=== PATIENT | female | born 2000 | race African-American/Black ===

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

== ENCOUNTER 2018-02-26 11:44 | Emergency (ER) | payer MEDICAID ==
[2018-02-26] MEDS ORDERED: ACETAMINOPHEN 325 MG TABLET PO ONE (12:16)
--- NOTE | 2018-02-26 12:26 | ER Document Report ---
HPI - HPI Patient complains to provider of: sore throat Pain Level: 5 Context: Patient is an 16-year-old female presenting to the emergency department complaining of sore throat for the last 2 days. Patient's denying fever, cough , congestion, nausea, vomiting, dysuria, abdominal pain, vaginal discharge. Patient does not have a primary care provider nor does she have insurance. She is requesting STI testing in the emergency room. Past medical history: None Medications: None Allergies: None - REPRODUCTIVE Reproductive: DENIES: : Past Medical History - General Information source: Patient - Social History Smoking Status: Never Smoker Lives with: Family Family History: Reviewed & Not Pertinent - Past Medical History Cardiac Medical History: Denies: Hx Heart Attack, Hx Hypertension Pulmonary Medical History: Denies: Hx Asthma Neurological Medical History: Denies: Hx Cerebrovascular Accident, Hx Seizures Renal/ Medical History: Denies: Hx Peritoneal Dialysis GI Medical History: Denies: Hx Hepatitis, Hx Hiatal Hernia, Hx Ulcer Psychiatric Medical History: Reports: Hx Depression Infectious Medical History: Denies: Hx Hepatitis Past Surgical History: Reports: Hx Myringotomy. Denies: Hx Hysterectomy, Hx Mastectomy, Hx Open Heart Surgery, Hx Pacemaker - Immunizations Immunizations up to date: Yes Vertical Provider Document - CONSTITUTIONAL Agree With Documented VS: Yes Notes: GENERAL: Alert, interacts well. No acute distress. HEAD: Normocephalic, atraumatic. EYES: Pupils equal, round, and reactive to light. Extraocular movements intact. ENT: Oral mucosa moist, tongue midline. Nares patent, TM's intact nonerythematous nonbulging. Pharynx erythematous with palatal petechiae and exudate noted bilateral tonsils +2 symmetrical. No trismus NECK: Full range of motion. Supple. Trachea midline. LUNGS: Clear to auscultation bilaterally, no wheezes, rales, or rhonchi. No respiratory distress. No lymphadenopathy appreciated HEART: Tachycardic rate and rhythm. No murmur ABDOMEN: Soft, non-tender. Non-distended. Bowel sounds present in all 4 quadrants. EXTREMITIES: Moves all 4 extremities spontaneously. No edema, normal radial and dorsalis pedis pulses bilaterally. No cyanosis. BACK: no cervical, thoracic, lumbar midline tenderness. No saddle anesthesia, normal distal neurovascular exam. NEUROLOGICAL: Alert and oriented x3. Normal speech. cranial nerves II through XII grossly intact PSYCH: Normal affect, normal mood. SKIN: Warm, dry, normal turgor. No rashes or lesions noted. - INFECTION CONTROL TRAVEL OUTSIDE OF THE [place] IN LAST 30 DAYS: No Course - Re-evaluation Re-evalutation: 02/26/18 12:27 Patient is currently denying dysuria or vaginal discharge. Patient does state she wishes to be tested and treated for sexually transmitted diseases. Discussed urine test for gonorrhea and chlamydia. Then discussed pelvic exam to rule out trichomonas, bacterial vaginosis, yeast and pelvic inflammatory disease. Patient is currently refusing a pelvic exam. We will treat for gonorrhea and chlamydia in the emergency room. Treatments will also cover pharyngeal infections. 02/26/18 14:06 Patient states she is unable to take p.o. azithromycin at this time due to sore throat. Will prescribe for home use. - Vital Signs Vital signs: Temp Pulse Resp BP Pulse Ox 98.9 F 103 H 22 115/62 98 02/26/18 11:57 02/26/18 11:57 02/26/18 11:57 02/26/18 11:57 02/26/18 11:57 Discharge - Discharge Clinical Impression: Strep pharyngitis, Sexually transmitted disease exposure Condition: Stable Disposition: HOME, SELF-CARE Instructions: Strep Throat ([facility]) Additional Instructions: As we discussed you have been seen and treated in the emergency department for strep throat. You have also been prophylactically treated for gonorrhea and chlamydia. Because we did not do a pelvic exam today some sexually transmitted diseases were not able to be tested for. You should follow-up with the health district or your primary care provider. Please return to the emergency room for any other concerning symptoms. Prescriptions: Amoxicillin Trihydrate [Amoxil 500 mg Capsule] 500 mg PO BID 10 Days capsule Azithromycin 500 mg PO ONCE PRN #2 tablet PRN Reason:
[2018-02-26] MEDS ORDERED: AMOXICILLIN TRIHYDRATE 500 MG CAPSULE PO ONE (12:35)
[2018-02-26] MEDS ORDERED: CEFTRIAXONE INJ 250 MG VIAL IM ONE (13:30)
[2018-02-26] MEDS ORDERED: LIDOCAINE 1% INJ-PF (10 MG/ML) 30 ML SDV INJ ONE (13:30)
[2018-02-26] MEDS ORDERED: AZITHROMYCIN 1 GM SUSP PACKET PO ONE (13:31)
[2018-02-26 13:51] VITALS: BP 116/68
[2018-02-26 14:58] LABS: CHLAM PCR NOT DETECTED (NOT DETECT); GON PCR NOT DETECTED (NOT DETECT)
== END 2018-02-26 14:15 | disposition home or self-care (01) ==
LOC: ER 11:44
DX: Z20.2 Contact with and (suspected) exposure to infections with a predominantly sexual mode of transmission (principal); J02.0 Streptococcal pharyngitis
CPT/HCPCS: 99283; 96372; 87880; 81025; 87491; 87591; J3490 ×2; Q0144; J0696

== ENCOUNTER 2018-05-07 12:44 | Emergency (ER) | payer MEDICAID ==
--- NOTE | 2018-05-07 13:30 | ER Document Report ---
ED Medical Screen (RME) - General Chief Complaint: Anxiety Stated Complaint: PSYCH ISSUES Time Seen by Provider: 05/07/18 13:25 Mode of Arrival: Ambulatory Information source: Patient Notes: Patient is a 17-year-old female with past medical history of anxiety and depression who presents with increased symptoms of anxiety. She reports that she has been off of her medications for approximately 1 month. She states she used to take Celexa and BuSpar. She reports that her anxiety symptoms have increased and she is having a hard time focusing. Patient is calm and pleasant. Patient denies any suicidal or homicidal thoughts. I have greeted and performed a rapid initial assessment of this patient. A comprehensive ED assessment and evaluation of the patient, analysis of test results and completion of the medical decision making process will be conducted by additional ED providers. Dictation of this chart was performed using voice recognition software; therefore, there may be some unintended grammatical errors. TRAVEL OUTSIDE OF THE [place] IN LAST 30 DAYS: No - Related Data Allergies/Adverse Reactions: Sulfa (Sulfonamide Antibiotics) Allergy (Verified 05/07/18 12:49) Pruritis Past Medical History - Past Medical History Cardiac Medical History: Denies: Hx Heart Attack, Hx Hypertension Pulmonary Medical History: Denies: Hx Asthma Neurological Medical History: Denies: Hx Cerebrovascular Accident, Hx Seizures Renal/ Medical History: Denies: Hx Peritoneal Dialysis GI Medical History: Denies: Hx Hepatitis, Hx Hiatal Hernia, Hx Ulcer Psychiatric Medical History: Reports: Hx Depression Infectious Medical History: Denies: Hx Hepatitis Past Surgical History: Reports: Hx Myringotomy. Denies: Hx Hysterectomy, Hx Mastectomy, Hx Open Heart Surgery, Hx Pacemaker - Immunizations Immunizations up to date: Yes Physical Exam - Vital signs Vitals: Temp Pulse Resp BP Pulse Ox 98.8 F 73 18 117/58 L 100 05/07/18 12:57 05/07/18 12:57 05/07/18 12:57 05/07/18 12:57 05/07/18 12:57 Course - Vital Signs Vital signs: Temp Pulse Resp BP Pulse Ox 98.8 F 73 18 117/58 L 100 05/07/18 12:57 05/07/18 12:57 05/07/18 12:57 05/07/18 12:57 05/07/18 12:57 Doctor's Discharge - Discharge Instructions: Anxiety ([facility])
--- NOTE | 2018-05-07 18:59 | ER Document Report ---
ED Psych Disorder / Suicide - General Mode of Arrival: Ambulatory TRAVEL OUTSIDE OF THE [place] IN LAST 30 DAYS: No - General Chief Complaint: Anxiety Stated Complaint: PSYCH ISSUES Time Seen by Provider: 05/07/18 13:25 Notes: Patient is a 17-year-old female with past medical history of anxiety and depression who presents with increased symptoms of anxiety. She reports that she has been off of her medications for approximately 1 month. She states she used to take Celexa and BuSpar. She reports that her anxiety symptoms have increased and she is having a hard time focusing. Patient is calm and pleasant. Patient denies any suicidal or homicidal thoughts. ([facility]) - Related Data Allergies/Adverse Reactions: Sulfa (Sulfonamide Antibiotics) Allergy (Verified 05/07/18 12:49) Pruritis Past Medical History - General Information source: Patient - Social History Smoking Status: Never Smoker Frequency of alcohol use: None Drug Abuse: None Family History: Reviewed & Not Pertinent Patient has suicidal ideation: No Patient has homicidal ideation: No - Past Medical History Cardiac Medical History: Denies: Hx Heart Attack, Hx Hypertension Pulmonary Medical History: Denies: Hx Asthma Neurological Medical History: Denies: Hx Cerebrovascular Accident, Hx Seizures Renal/ Medical History: Denies: Hx Peritoneal Dialysis GI Medical History: Denies: Hx Hepatitis, Hx Hiatal Hernia, Hx Ulcer Psychiatric Medical History: Reports: Hx Depression Infectious Medical History: Denies: Hx Hepatitis Past Surgical History: Reports: Hx Myringotomy. Denies: Hx Hysterectomy, Hx Mastectomy, Hx Open Heart Surgery, Hx Pacemaker - Immunizations Immunizations up to date: Yes Review of Systems - Review of Systems Constitutional: No symptoms reported EENT: No symptoms reported Cardiovascular: No symptoms reported Respiratory: No symptoms reported Gastrointestinal: No symptoms reported Genitourinary: No symptoms reported Female Genitourinary: No symptoms reported Musculoskeletal: No symptoms reported Skin: No symptoms reported Hematologic/Lymphatic: No symptoms reported Neurological/Psychological: Depression, Anxiety. denies: Homicidal ideation, Suicidal ideation Physical Exam - Vital signs Vitals: Temp Pulse Resp BP Pulse Ox 98.8 F 73 18 117/58 L 100 05/07/18 12:57 05/07/18 12:57 05/07/18 12:57 05/07/18 12:57 05/07/18 12:57 - Notes Notes: PHYSICAL EXAMINATION: GENERAL: Well-appearing, well-nourished and in no acute distress. HEAD: Atraumatic, normocephalic. EYES: Pupils equal round and reactive to light, extraocular movements intact, conjunctiva are normal. ENT: Nares patent, oropharynx clear without exudates. Moist mucous membranes. NECK: Normal range of motion, supple without lymphadenopathy LUNGS: Breath sounds clear to auscultation bilaterally and equal. No wheezes rales or rhonchi. HEART: Regular rate and rhythm without murmurs ABDOMEN: Soft, nontender, nondistended abdomen. No guarding, no rebound. No masses appreciated. Female : deferred Musculoskeletal: Normal range of motion, no pitting or edema. No cyanosis. NEUROLOGICAL: Cranial nerves grossly intact. Normal speech, normal gait. Normal sensory, motor exams PSYCH: Normal mood, normal affect. SKIN: Warm, Dry, normal turgor, no rashes or lesions noted. ([facility]Y) Course - Re-evaluation Re-evalutation: I spoke with psychiatric team at the time of my initial contact with this patient. I discussed with them that patient is having some depression and anxiety symptoms as she has been not been taking her medications however she has no suicidal or homicidal ideations. Patient is calm and cooperative. They indicated they do not want me to do a psychiatric workup just put in a consult and they will speak to her. Currently pending psych consult. Patient resting with eyes closed in room 44. Respirations equal and unlabored. (OVID[facility] LEVY) - Vital Signs Vital signs: Temp Pulse Resp BP Pulse Ox 98.2 F 77 20 117/61 100 05/07/18 17:19 05/07/18 17:19 05/07/18 17:19 05/07/18 17:19 05/07/18 17:19 Discharge - Discharge Clinical Impression: Generalized anxiety disorder Condition: Good Disposition: HOME, SELF-CARE Instructions: Anxiety ([facility]) Additional Instructions: You were evaluated by the medical and behavioral health teams at [facility] for anxiety and are now appropriate for discharge. During your stay you received medical screening, nursing services, case management, meal services, 1:1 couns eling, and clinical and medical assessments. You are encouraged to practice alternative perspective taking and coping skills as discussed during your 1:1 counseling session. You are also reminded to take medication as prescribed and to follow up with your outpatient provider as soon as possible for ongoing medication management and therapy. Medication Recommendations: 1. Buspar 10 mg at bedtime 2. Zyprexa 2.5 mg twice per day. DEPRESSION: Your evaluation reveals that you have depression. While symptoms may be vague, they often include disturbance of sleep, fatigue, loss of appetite, and general loss of interest in life. While depression may be a side effect of drugs, or a reaction to a major change in your life, many cases have no known cause. If depression is acute, and related to a major loss in your life, you can expect it to clear completely with time. If you have been depressed a long time, are prone to repeated bouts of depression or low mood, or have been thinking of suicide, get help. Depression can be treated with anti-depressant medication and counselling. Long-term depression will often take a few weeks to clear, even with appropriate medication. Follow-up care is important. FOLLOW-UP CARE: If you have been referred to a physician for follow-up care, call the physicians office for an appointment as you were instructed or within the next two days.~ If you experience worsening or a significant change in your symptoms, notify the physician immediately or return to the Emergency Department at any time for re-evaluation. Prescriptions: Buspirone HCl [Buspar 10 mg Tablet] 10 mg PO QHS #14 tablet Olanzapine [Zyprexa] 2.5 mg PO BID #28 tablet Referrals: [facility] [Provider Group] - Follow up as needed
[2018-05-07 19:50] VITALS: BP 125/57
== END 2018-05-07 19:50 | disposition home or self-care (01) ==
LOC: ER 12:44
DX: F41.1 Generalized anxiety disorder (principal); F32.9 Major depressive disorder, single episode, unspecified; Z88.2 Allergy status to sulfonamides
CPT/HCPCS: 99283

== ENCOUNTER 2018-05-25 02:58 | Emergency (ER) | payer MEDICAID, OTHER ==
[2018-05-25] MEDS ORDERED: OLANZAPINE 2.5 MG TABLET PO ONE (04:36)
[2018-05-25] MEDS ORDERED: BUSPIRONE HCL 10 MG TABLET PO ONE (04:36)
[2018-05-25] MEDS ORDERED: OLANZAPINE 2.5 MG TABLET ONE (04:52)
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
[2018-05-25 05:39] VITALS: BP 107/54
== END 2018-05-25 05:39 | disposition home or self-care (01) ==
LOC: ER 02:58
DX: F41.9 Anxiety disorder, unspecified (principal); F41.0 Panic disorder [episodic paroxysmal anxiety]; T43.596A Underdosing of other antipsychotics and neuroleptics, initial encounter; Z91.128 Patient's intentional underdosing of medication regimen for other reason; Z91.14 Patient's other noncompliance with medication regimen; R51 Headache
CPT/HCPCS: 99283; J3490 ×2

== ENCOUNTER → 2018-09-15 | Outpatient (CLI) | payer MEDICAID, OTHER ==
[2018-09-15 13:42] LABS: BACTERIA (WET MOUNT) 4+ BACTERIA SEEN; EPITHELIALS (WET MOUNT) 4+ EPITHELIALS SEEN; RBCS (WET MOUNT) NO RBCS SEEN; T.VAGINALIS (WET MOUNT) TRICHOMONAS SEEN; WBCS (WET MOUNT) 4+ WBCS SEEN; YEAST (WET MOUNT) NO YEAST SEEN
[2018-09-15 15:16] LABS: CHLAM PCR DETECTED (NOT DETECT); GON PCR NOT DETECTED (NOT DETECT)
== END ==
LOC: LAB 13:27
PROVIDERS: ATTEND Nurse Practitioner Family
DX: N89.8 Other specified noninflammatory disorders of vagina (principal); R30.0 Dysuria
CPT/HCPCS: 87086; 87210; 87491; 87591

== ENCOUNTER 2018-10-17 17:31 | Emergency (ER) | payer MEDICAID ==
--- NOTE | 2018-10-17 18:26 | ER Document Report ---
ED General - General Chief Complaint: Anxiety Stated Complaint: ANXIETY Time Seen by Provider: 10/17/18 18:11 TRAVEL OUTSIDE OF THE [place] IN LAST 30 DAYS: No - HPI Notes: 17 year old female to the ED for panic attack. 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 States that she thought that she had lost her phone and she became very worried. States that she attempted to call her boyfriend and talk to him about it, but he told her "what do you want me to do". Patient states she got more upset when he said that and then went into a full panic attack. States that she has a history of generalized anxiety disorder. In the past she has taken Prozac but she ran out. She does not currently have an psychiatrist. States when she was having her panic attack earlier, she had her typical symptoms of chest tightness and fidgeting right leg. States that she is feeling much better now and her attack has completely resolved. Denies any SI, HI, hallucinations. - Related Data Allergies/Adverse Reactions: Sulfa (Sulfonamide Antibiotics) Allergy (Verified 05/07/18 12:49) Pruritis Past Medical History - General Information source: Patient - Social History Smoking Status: Never Smoker Frequency of alcohol use: None Drug Abuse: None Family History: Reviewed & Not Pertinent - Past Medical History Cardiac Medical History: Denies: Hx Heart Attack, Hx Hypertension Pulmonary Medical History: Denies: Hx Asthma Neurological Medical History: Denies: Hx Cerebrovascular Accident, Hx Seizures Renal/ Medical History: Denies: Hx Peritoneal Dialysis GI Medical History: Denies: Hx Hepatitis, Hx Hiatal Hernia, Hx Ulcer Psychiatric Medical History: Reports: Hx Depression Infectious Medical History: Denies: Hx Hepatitis Past Surgical History: Reports: Hx Myringotomy. Denies: Hx Hysterectomy, Hx Mastectomy, Hx Open Heart Surgery, Hx Pacemaker - Immunizations Immunizations up to date: Yes Review of Systems - Review of Systems Constitutional: denies: Chills, Fever EENT: No symptoms reported Cardiovascular: denies: Chest pain, Palpitations, Dyspnea Respiratory: denies: Cough, Short of breath Gastrointestinal: denies: Abdominal pain, Diarrhea, Nausea, Vomiting Genitourinary: No symptoms reported Musculoskeletal: No symptoms reported Skin: No symptoms reported Neurological/Psychological: Anxiety. denies: Hallucinations, Homicidal ideation, Suicidal ideation -: Yes All other systems reviewed and negative Physical Exam - General General appearance: Appears well, Alert - HEENT Head: Normocephalic, Atraumatic Eyes: Normal Pupils: PERRL - Respiratory Respiratory status: No respiratory distress Chest status: Nontender Breath sounds: Normal Chest palpation: Normal - Cardiovascular Rhythm: Regular Heart sounds: Normal auscultation Murmur: No - Abdominal Inspection: Normal Distension: No distension Bowel sounds: Normal Tenderness: Nontender Organomegaly: No organomegaly - Back Back: Normal, Nontender - Extremities General upper extremity: Normal inspection, Nontender, Normal color, Normal ROM, Normal temperature General lower extremity: Normal inspection, Nontender, Normal color, Normal ROM, Normal temperature, Normal weight bearing. No: Julissa's sign - Neurological Neuro grossly intact: Yes Cognition: Normal Orientation: AAOx4 [place] Coma Scale Eye Opening: Spontaneous [place] Coma Scale Verbal: Oriented [place] Coma Scale Motor: Obeys Commands [place] Coma Scale Total: 15 Speech: Normal Motor strength normal: LUE, RUE, LLE, RLE Sensory: Normal - Psychological Associated symptoms: Normal affect - Patient smiling, joking with me. She shows me a picture of her dog. States that her anxiety has completely resolved., Normal mood. No: Flight of ideas, Labile, Psychomotor agitation, Tactile em lucinations, Tangential speech, Visual hallucinations - Skin Skin Temperature: Warm Skin Moisture: Dry Skin Color: Normal Course - Transfer of Care Notes: 10/17/18 Impression: Anxiety attack. Patient is doing well. She denies SI, HI, hallucinations. She has not had good follow up for her anxiety. Plan to give information for her follow up. Will write for 20 mg Prozac for two weeks to then be monitored and adjusted by psychiatrist. patient agrees with the plan. Discharge - Discharge Clinical Impression: Anxiety attack, Anxiety disorder Condition: Good Disposition: HOME, SELF-CARE Instructions: Anxiety ([facility]) Additional Instructions: FOLLOW UP WITH PSYCHIATRIST LISTED BELOW. RETURN IF WORSE. YOU WILL BE GIVEN TWO WEEKS OF PROZAC TO RESTART YOUR SSRI. PLEASE FOLLOW UP IN THE MEANTIME TO CONTINUE AND MANAGE YOUR THERAPY. RETURN IF YOUR SYMPTOMS ARE WORSE. [facility] [address], [address] [phone] Prescriptions: Fluoxetine HCl [Prozac 20 mg Capsule] 20 mg PO DAILY #15 capsule Forms: Return to Work
== END 2018-10-17 18:25 | disposition home or self-care (01) ==
LOC: ER 17:31
DX: F41.9 Anxiety disorder, unspecified (principal); Z88.2 Allergy status to sulfonamides
CPT/HCPCS: 99283

== ENCOUNTER 2019-04-07 07:26 | Emergency (ER) | payer MEDICAID, OTHER ==
[2019-04-07 10:35] VITALS: BP 140/78
--- NOTE | 2019-04-07 11:58 | ER Document Report ---
Entered by FLAQUITA DOUGHERTY SCRIBE 04/07/19 0929 Acting as scribe for:NATHANAEL LEACH DO ED Psych Disorder / Suicide - General Chief Complaint: Anxiety Stated Complaint: ANXIETY/DEPRESSION Time Seen by Provider: 04/07/19 08:50 Mode of Arrival: Ambulatory Information source: Patient Notes: Patient is a 18 year old female that presents to the emergency department today with complaints of anxiety. Patient reports a long history of anxiety. Patient states that she has insurance but does not have a primary care physician. Patient states that over the last few days she "cannot control her thought process" stating she sometimes cries uncontrollably and then gets mad. Patient states she was dropped by [facility] because she was missing too many appointments. TRAVEL OUTSIDE OF THE [place] IN LAST 30 DAYS: No - Related Data Allergies/Adverse Reactions: Sulfa (Sulfonamide Antibiotics) Allergy (Verified 04/07/19 08:28) Pruritis Home Medications: Visteril PRN Past Medical History - General Information source: Patient - Social History Smoking Status: Never Smoker Cigarette use (# per day): No Frequency of alcohol use: None Drug Abuse: None Lives with: Family Family History: Reviewed & Not Pertinent Patient has suicidal ideation: No Patient has homicidal ideation: No Psychiatric Medical History: Reports: Hx Depression Past Surgical History: Reports: Hx Myringotomy - Immunizations Immunizations up to date: Yes Review of Systems - Review of Systems Constitutional: No symptoms reported EENT: No symptoms reported Cardiovascular: No symptoms reported Respiratory: No symptoms reported Gastrointestinal: No symptoms reported Genitourinary: No symptoms reported Female Genitourinary: No symptoms reported Musculoskeletal: No symptoms reported Skin: No symptoms reported Hematologic/Lymphatic: No symptoms reported Neurological/Psychological: See HPI, Depression, Anxiety. denies: Homicidal ideation, Suicidal ideation -: Yes All other systems reviewed and negative Physical Exam - Vital signs Vitals: Temp Pulse Resp BP Pulse Ox 98.1 F 71 18 115/66 99 04/07/19 07:33 04/07/19 07:33 04/07/19 07:33 04/07/19 07:33 04/07/19 07:33 Interpretation: Normal - General General appearance: Appears well, Alert - HEENT Head: Normocephalic, Atraumatic Eyes: Normal Pupils: PERRL - Respiratory Respiratory status: No respiratory distress Chest status: Nontender Breath sounds: Normal Chest palpation: Normal - Cardiovascular Rhythm: Regular Heart sounds: Normal auscultation Murmur: No - Abdominal Inspection: Normal Distension: No distension Bowel sounds: Normal Tenderness: Nontender Organomegaly: No organomegaly - Back Back: Normal, Nontender - Extremities General upper extremity: Normal inspection, Nontender, Normal color, Normal ROM, Normal temperature General lower extremity: Normal inspection, Nontender, Normal color, Normal ROM, Normal temperature, Normal weight bearing. No: Julissa's sign - Neurological Neuro grossly intact: Yes Cognition: Normal Orientation: AAOx4 [place] Coma Scale Eye Opening: Spontaneous [place] Coma Scale Verbal: Oriented [place] Coma Scale Motor: Obeys Commands [place] Coma Scale Total: 15 Speech: Normal Motor strength normal: LUE, RUE, LLE, RLE Sensory: Normal - Psychological Associated symptoms: Anxious - Skin Skin Temperature: Warm Skin Moisture: Dry Skin Color: Normal Course - Re-evaluation Re-evalutation: 04/07/19 09:30 Patient is a 18-year-old female with a history of anxiety who came in today because she was anxious. She was seen in the emergency department before and has been prescribed Vistaril. Patient has insurance but has not been following with a primary care provider. States that she has been seen by [facility] before but was let go because she missed too many appointments. Patient states that her anxiety has been very bad for the last 4 days. She has a history of suicidal ideation when she was 13 and states that she was admitted to the hospital at that time. States that she did not actually do anything at that time to hurt herself. Patient will be given outpatient resources by mental health. She is not a danger to herself or others at this time. She is instructed to go to the walk-in clinic that is open until noon today. She is agreeable to this plan. She will be given a short course of buspirone and Zyprexa which she has taken in the past. Patient is agreeable to this plan and stable at the time of discharge. - Vital Signs Vital signs: Temp Pulse Resp BP Pulse Ox 98.3 F 72 16 140/78 H 100 04/07/19 10:14 04/07/19 10:14 04/07/19 10:14 04/07/19 10:14 04/07/19 10:14 Discharge - Discharge Clinical Impression: Anxiety Condition: Stable Disposition: HOME, SELF-CARE Instructions: Anxiety ([facility]) Additional Instructions: Please go to the outpatient clinic as recommended this morning. Prescriptions: Olanzapine [Zyprexa Zydis 5 Mg Odt Tablet] 5 mg PO QHS #7 tab.rapdis Buspirone HCl [Buspar 10 mg Tablet] 10 mg PO BID #14 tablet Forms: Return to Work I personally performed the services described in the documentation, reviewed and edited the documentation which was dictated to the scribe in my presence, and it accurately records my words and actions.
== END 2019-04-07 10:35 | disposition home or self-care (01) ==
LOC: ER 07:26
DX: F41.9 Anxiety disorder, unspecified (principal); F32.9 Major depressive disorder, single episode, unspecified; Z88.2 Allergy status to sulfonamides
CPT/HCPCS: 99283